=== PATIENT | male | born 1960 | race Hispanic/Latino ===

== ENCOUNTER 2025-04-24 14:08 | Emergency (ER) | payer SELFPAY ==
[~2025-04-24] VITALS: Ht 172.7 cm; Wt 99.8 kg
[2025-04-24] MEDS ORDERED: AMOX1TAB16 PO (14:49)
--- NOTE | 2025-04-24 14:50 | ERN ---
ED Note History of Present Illness Stated Complaint: TOOTH PAIN Chief Complaint: Tooth Ache/Pain Time Seen by MD: 14:12 Time Seen by Midlevel: 14:15 Dictation: 64-year-old male with a past medical history coming in complaining of pain to the right lower molar. Patient states it has been going on for three days. Denies any fever, nausea or vomiting. Allergies: Coded Allergies: No Known Drug Allergies (Unverified Allergy, Unknown, 04/24/25) Past Medical History Past Medical History: No Pertinent History Surgical History: None Review of System Dictation Constitutional: Negative for fever,chills, and weight loss Eyes: Negative for injury, pain,redness, and discharge ENT: Complaining of right lower molar pain Cardiovascular: Negative for chest pain, palpitations, and edema Respiratory: Negative for shortness of breath, cough, and wheezing, Abdomen/GI: Negative for abdominal pain, nausea, vomiting, diarrhea, and constipation Back: Negative for injury and pain : Negative for injury, bleeding and discharge MS/Extremity: Negative for injury and deformity Skin: Negative for rash, and discoloration Neuro: Negative for headache, weakness, numbness, tingling, and seizure Psych: Negative for suicide ideation, homicidal ideation, and hallucinations Review of Systems: was completed Initial Vital Sign VS Vital Signs Date Time Temp Pulse Resp B/P (MAP) Pulse Ox O2 Delivery O2 Flow Rate FiO2 04/24/25 14:10 98.6 87 18 161/86 98 Physical Exam Dictation General: awake, alert, NAD Head/Face: Normocephalic, atraumatic Eyes: PERRL, EOMI, vision at baseline ENT: oral cavity clear, TMs clear, pain to the last right lower molar, areas noted, no signs of an abscess. Neck: Trachea midline, supple, no nuchal rigidity Cardiovascular: RRR, normal S1/S2, No MRGs, no JVD Respiratory: CTAB, no respiratory distress, No rales or wheezes Abdomen: Soft, non-tender, non-distended, normal bowel sounds, no guarding or rebound. Skin: Warm, dry, normal turgor, no rash MS/Extremity: Pulses equal, no cyanosis, neurovascular intact, FROM Neuro: COAx4, GCS 15, strength 5/5, CN 2-12 intact, normal cerebellar exam, normal gait, Psych: Normal behavior, mood, and affect normal ED Course ED Course Vital Signs Date Time Temp Pulse Resp B/P (MAP) Pulse Ox O2 Delivery O2 Flow Rate FiO2 04/24/25 14:10 98.6 87 18 161/86 98 Medical Decision Making MDM MDM: 64-year-old male with a past medical history coming in complaining of pain to the right lower molar. Patient states it has been going on for three days. Denies any fever, nausea or vomiting.Patient will be discharged shows antibiotics and to follow up outpatient with dentist. Patient educated on signs and symptoms of when to return back to the emergency room. You verbalized understanding, answered all questions. Differential diagnosis: Toe caries, dental abscess, facial cellulitis Rationale: Tests considered and ordered secondary to shared decision making include: Previous outside records reviewed: Old ER visits. Risk of complication and/or morbidity or mortality of patient management: None Medications-Per medication reconciliation Need for hospitalization: Patient does not meet criteria for hospitalization. Need for emergency major/minor surgery: No There are no social concerns with this patient. Prescription drug management Prescriptions will include symptomatic care Patient's prior external medical records from other ER visits were reviewed by me as indicated. Prior testing and results from previous visits were reviewed. Prior tests were taken into account with medical decision making and resource utilization, independent historian/historians were used to obtain complete medical history. I independently interpreted the test that were performed, results were reviewed by me and considered findings on radiology if ordered. Medical management and examination interpretation discussions were had by me with other qualified healthcare professionals as indicated for the patient's care. DX & DISP Disposition: Discharge Departure Impression: Primary Impression: Tooth infection Condition: Stable Scripts Amoxicillin/Potassium Clav (Amox Tr-K Clv 875-125 mg Tab) 875 Mg-125 Mg Tablet 1 EACH PO BID for 5 Days, #10 TAB 0 Refills Prov: VALENCIA BAILEY [employer] 04/24/25 Additional Instructions: Please finish the course of antibiotics. Follow up with a dentist outpatient. Return to the hospital if you develop any fever, facial swelling, drainage. Time of Disposition: 14:49 I have reviewed the case, and I agree with, Diagnosis and Plan VALENCIA BAILEY NP Apr 24, 2025 14:50
[2025-04-24 15:45] VITALS: BP 133/68; PULSE 88; RESP 18; TEMP 97.8; O2SAT 97
== END 2025-04-24 15:44 | disposition home or self-care (01) ==
LOC: EDH 14:08
DX: K04.7 Periapical abscess without sinus (principal)
CPT/HCPCS: 99283; 96372; J1885